=== PATIENT | male | born 1930 | race Caucasian/White ===

== ENCOUNTER → 2020-10-22 | Outpatient (CLI) | payer MEDICARE, OTHER ==
--- NOTE | 2020-10-22 16:11 | RAD ---
3 views of the left foot without comparison for diabetic ulcer, attention second toe. FINDINGS: There is hammertoe deformity of the second fifth digits. There is moderate arthritis throug hout most of the midfoot joints as well as the first metatarsophalangeal joint and involving the tibi otalar joint. Calcaneal bone spur and calcaneal enthesophyte are both present. Small vessel calcifica tions are seen in multiple distributions. No definite fracture or acute osseous abnormality. Hammerto e deformity does limit visualization of the second toe, however there are no definite radiographic si gns of osteomyelitis. Sensitivity of radiographs for osteomyelitis is extremely low. IMPRESSION: 1. No acute osseous abnormality, with limited radiographic evaluation of the second toe due to hammer toe deformity. If there strong clinical concern for osteitis, consider further evaluation with MRI. 2. Moderate polyarticular midfoot osteoarthritis, also involving the first metatarsophalangeal joint and the tibiotalar joints. Electronically signed by: Syed Navarro MD (10/22/2020 4:08 PM) [id number]
== END ==
LOC: RAD 14:25
PROVIDERS: ATTEND Family Medicine
DX: M19.072 Primary osteoarthritis, left ankle and foot (principal); E13.621 Other specified diabetes mellitus with foot ulcer; L97.528 Non-pressure chronic ulcer of other part of left foot with other specified severity
CPT/HCPCS: 73630

== ENCOUNTER → 2021-02-01 | Outpatient (CLI) | payer MEDICARE, OTHER ==
--- NOTE | 2021-02-01 12:40 | RAD ---
EXAM: Pelvis and bilateral hips, 4 views. HISTORY: Pain. COMPARISON: None. FINDINGS: A frontal view of the pelvis and frontal and frog-leg views of both hips are obtained. Ther e is no fracture, dislocation or subluxation. There is mild marginal right femoral head and acetabula r spurring. There is degenerative change at the lower lumbar levels. There is subchondral sclerosis i nvolving the sacroiliac joints. There are vascular calcifications. IMPRESSION: 1. Mild right hip osteoarthritis. 2. Degenerative change involving the sacroiliac joints and lower lumbar spine. Electronically signed by: La Norris MD (02/01/2021 12:38 PM) [id number]
== END ==
LOC: RAD 11:42
PROVIDERS: ATTEND Family Medicine
DX: M16.11 Unilateral primary osteoarthritis, right hip (principal); M47.816 Spondylosis without myelopathy or radiculopathy, lumbar region
CPT/HCPCS: 73521

== ENCOUNTER → 2021-02-02 | Outpatient (CLI) | payer MEDICARE, OTHER ==
--- NOTE | 2021-02-02 16:04 | RAD ---
CT left hip without contrast PQRS statement: CT scans at this facility use dose reduction including either automated exposure cont rol, iterative reconstructions, and /or weight based radiation dosing via mA and kV modification when appropriate to reduce radiation dose to as low as reasonably achievable. HISTORY: Left hip pain. COMPARISON: Hip x-rays April 03, 2021 FINDINGS: No fracture. No dislocation. There is joint space narrowing and mild bone spurring of the a cetabulum consistent with mild changes of osteoarthritis as well as mild bone spurring of the medial femoral head. Mild perilabral calcifications just superior of the acetabulum noted. No bone lesion. N o soft tissue hematoma. There is mild edema of the lateral hip overlying the iliotibial band and femo ral greater trochanter. IMPRESSION: No acute osseous injury of the left hip. Mild changes of osteoarthritis. Soft tissue rashawn a lateral of the hip. Electronically signed by: Gerardo Ledesma MD (02/02/2021 4:02 PM) [facility]
== END ==
LOC: CT 15:32
PROVIDERS: ATTEND Family Medicine
DX: M16.12 Unilateral primary osteoarthritis, left hip (principal)
CPT/HCPCS: 73700

== ENCOUNTER → 2021-02-07 | Outpatient (CLI) | payer MEDICARE, OTHER ==
--- NOTE | 2021-02-07 16:41 | RAD ---
CT STUDY LUMBAR SPINE WITHOUT CONTRAST Clinical indications: Low back pain. Slow to move. TECHNIQUE: Noncontrast helical CT scanning of the lumbar spine was performed. Multiplanar 2-D reconst ructions were generated. PQRS compliance Statement One or more of the following individualized dose reduction techniques were utilized for this study: 1. Automated exposure control 2. Adjustment of the mA and/or kV according to patient size 3. Use of iterative reconstruction technique FINDINGS: No compression fracture discitis or lytic process is apparent. There is a grade 1 anterolis thesis of L4-5. There is mild retrolisthesis of L1-2 and L2-3 and L3-4. Degenerative facet arthropath y seen throughout the lumbar spine. No spondylolysis is apparent. The transverse processes are intact . There is severe degenerative disc space narrowing and prominent degenerative endplate spurring at L 1-2 and L2-3 and L3-4 and L5-S1. There is mild degenerative endplate spurring and disc space narrowin g at L4-5. Degenerative vacuum disc phenomenon is seen at all levels. Significant multilevel spinal c anal stenosis is seen at L1-2 and L2-3 and L3-4 and L4-5 and L5-S1. There is mild multilevel neural f oraminal narrowing at all of these levels as well due to a combination of facet spurring and endplate spurring and disc protrusion. There is degenerative endplate cystic changes and sclerosis throughout the lumbar spine. IMPRESSION: No acute compression fracture. Degenerative lumbar spondylosis and spondylolisthesis resulting in multilevel spinal canal stenosis a nd neural foraminal narrowing. Electronically signed by: Bassem Fatima MD (02/07/2021 4:39 PM) [id number]
[2021-02-07 17:20] LABS: BASO % 0 % (0-3); EOS # 0.1 x10^3/uL (0.0-0.7); EOS % 2 % (0-3); HEMATOCRIT 32.7 % (39.0-53.0); HEMOGLOBIN 10.8 g/dL (13.0-17.5); LYMPH # 0.9 x10^3/uL (1.0-4.8); LYMPH % 20 % (24-48); MEAN CORPUSCULAR HEMOGLOBIN 32 pg (25-35); MEAN CORPUSCULAR HGB CONC 33 g/dL (31-37); MEAN CORPUSCULAR VOLUME 96 fL (79-100); MONO # 0.7 x10^3/uL (0.0-1.1); MONO % 16 % (0-9); NEUT # 2.8 x10^3uL (1.8-7.7); NEUT % 62 % (31-73); PLATELET COUNT 156 x10^3/uL (140-400); RED BLOOD COUNT 3.41 x10^6/uL (4.30-5.70); RED CELL DISTRIBUTION WIDTH 15.8 % (11.5-14.5); WHITE BLOOD COUNT 4.5 x10^3/uL (4.0-11.0)
[2021-02-07 18:39] LABS: SEDIMENTATION RATE 11 (0-15)
== END ==
LOC: CT 15:51
PROVIDERS: ATTEND Family Medicine
DX: M51.26 Other intervertebral disc displacement, lumbar region (principal); M47.816 Spondylosis without myelopathy or radiculopathy, lumbar region; M43.16 Spondylolisthesis, lumbar region; M48.07 Spinal stenosis, lumbosacral region; M54.32 Sciatica, left side
CPT/HCPCS: 36415; 72131; 85025; 85651

== ENCOUNTER → 2021-08-02 | Outpatient (CLI) | payer MEDICARE, OTHER ==
--- NOTE | 2021-08-02 17:22 | RAD ---
EXAM: Bilateral lower extremity arterial Doppler sonogram. HISTORY: Peripheral vascular disease. Diabetes. Atherosclerosis. TECHNIQUE: Dobbins scale and color Doppler sonographic evaluation of the bilateral lower extremity arter ies with spectral waveform analysis was performed. FINDINGS: There are biphasic waveforms throughout the lower extremity arteries, was exception of trip hasic waveforms within the left mid and distal superficial femoral artery. There are normal peak syst olic velocities throughout the lower extremity arteries. There is atherosclerotic plaque throughout t he lower extremity arteries. No hemodynamically significant stenosis or occlusion is seen. IMPRESSION: Bilateral lower extremity arteries atherosclerotic plaque. No hemodynamically significant stenosis or arterial occlusion is seen. Electronically signed by: La Norris MD (08/02/2021 5:20 PM) [id number]
== END ==
LOC: US 13:58
PROVIDERS: ATTEND Family Medicine
DX: I70.203 Unspecified atherosclerosis of native arteries of extremities, bilateral legs (principal)
CPT/HCPCS: 93925